=== PATIENT | female | born 1960 ===

== ENCOUNTER 2018-11-06 13:34 | Emergency (ER) | payer OTHER ==
[~2018-11-06] VITALS: Ht 149.9 cm; Wt 60.8 kg
[2018-11-06] MEDS ORDERED: DICY20TA PO (20:37)
[2018-11-06] MEDS ORDERED: PANTOPRAZOLE SO40 MG PO (20:37)
[2018-11-06] MEDS ORDERED: CARAFATE1 GM PO (20:37)
== END 2018-11-06 20:56 | disposition home or self-care (01) ==
LOC: ER 13:34
DX: R10.13 Epigastric pain (principal)

== ENCOUNTER 2018-11-13 19:14 | Emergency (ER) | payer OTHER ==
[~2018-11-13] VITALS: Ht 152.4 cm; Wt 60.8 kg
[~2018-11-13 19:14] MED LIST: CARAFATE1 GM PO; DICY20TA PO; PANTOPRAZOLE SO40 MG PO
== END 2018-11-13 20:43 | disposition home or self-care (01) ==
LOC: ER 19:14
DX: S60.211A Contusion of right wrist, initial encounter (principal); W01.198A Fall on same level from slipping, tripping and stumbling with subsequent striking against other object, initial encounter; Y93.89 Activity, other specified; Y92.89 Other specified places as the place of occurrence of the external cause; Y99.8 Other external cause status

== ENCOUNTER 2019-01-26 12:30 | Outpatient (CLI) | payer OTHER | END 2019-01-26 12:33 | disposition home or self-care (01) | LOC: RAD 12:30 | DX: R10.84 Generalized abdominal pain (principal) ==